=== PATIENT | female | born 1995 | race Caucasian/White ===

== ENCOUNTER 2021-06-15 19:05 | Outpatient (CLI) | payer SELFPAY ==
[~2021-06-15] VITALS: Ht 160 cm; Wt 74.1 kg
--- NOTE | 2021-06-15 19:20 | NUR ---
192- PATIENT AND FRIEND AMBULATING ONTO UNIT. PATIENT ORIENATED TO LABOR ROOM AND CHANGED INTO GOWN. PATIENT DENIES COMPLICATIONS DURING THIS . REPORTS GFM, NO LOF, NO BLEEDING AND CONTRACTIONS EVERY 5 MINUTES FOR THE LAST 2 HOURS. PATIENT FRIEND, STU, HERE TRANSLATING FOR HER. 1924- EFM AND TOCO ON AND TRACING. VITALS SIGNS TAKEN, ASSESSMENT COMPLETED WITH HELP OF TRANSLATION. DISCUSSED PLAN OF CARE AND WHAT TO EXPECT. DENIES FURTHER QUESTIONS. 1941- SVE FINGERTIP. 1949- CALLED PROVIDER SCHOOL TRAFFIC GUARD, SEE PHYSICIAN NOTIFICATION.
[2021-06-15 19:30] VITALS: BP 109/60; PULSE 75; TEMP 97.9
[2021-06-15] MEDS ORDERED: PRENATAL TABLET PO (19:48)
[2021-06-15 20:10] LABS: COLLECTION METHOD CLEAN CATCH
[2021-06-15 20:16] LABS: PH 7 (5-8); SQUAMOUS EPITHELIAL 0-2 /hpf (0-10); URINE APPEARANCE Clear (CLEAR/HAZY); URINE BACTERIA None Seen /hpf (NONE SEEN); URINE BILIRUBIN Negative (NEGATIVE); URINE BLOOD Negative (NEGATIVE); URINE COLOR Straw (YELLOW); URINE GLUCOSE Negative (NEGATIVE); URINE KETONE Negative (NEGATIVE); URINE LEUKOCYTE ESTERASE Negative (NEGATIVE); URINE NITRATE Negative (NEGATIVE); URINE PROTEIN(semi-quant) Negative (NEGATIVE); URINE RBC 0-2 /hpf (0-2); URINE UROBILINOGEN Negative (NEGATIVE); URINE WBC 0-2 /hpf (0-2)
[2021-06-15 20:25] VITALS: BP 100/59; PULSE 74
== END 2021-06-15 20:40 | disposition home or self-care (01) ==
LOC: LDRO 19:05
PROVIDERS: Obstetrics & Gynecology
DX: O62.9 Abnormality of forces of labor, unspecified (principal); Z3A.31 31 weeks gestation of pregnancy

== ENCOUNTER 2021-07-01 17:41 | Outpatient (CLI) | payer SELFPAY ==
[~2021-07-01] VITALS: Ht 160 cm; Wt 75.9 kg
[~2021-07-01 17:41] MED LIST: PRENATAL TABLET PO
--- NOTE | 2021-07-01 17:45 | NUR ---
174- Pt arrives on unit via wheelchair. Pt tearful and in pain. Pt assisted to bed. Pt is khmer speaking. Able to communicate that she fell on ice. Propulsion Engineer called. EFM and TOCO on and tracing. Assessment completed. Pt states she was using a brooom and fell. She states her legs spread apart very far, like the splits. She denies VB, LOF. She is having intermittent lower abd and lower back pain, states they feel like contractions. Pt appears uncomfortable. 1809- Dr Horton called and orders received, see physician notification. YVON Jane assumes care at this time.
[2021-07-01 18:00] VITALS: BP 105/64; PULSE 72
[2021-07-01 18:20] VITALS: PULSE 87
--- NOTE | 2021-07-01 18:20 | NUR ---
SVE closed/thick/high, no vaginal bleeding or LOF, ballotable presenting part. Pt tolerates well.
--- NOTE | 2021-07-01 18:36 | NUR ---
Tylenol 1 g po. Dried Fruit Washer continues on speaker phone. Explains procedures to pt invites questions, pt denies.
[2021-07-01 18:50] VITALS: BP 95/63; PULSE 70
[2021-07-01 19:25] VITALS: BP 98/56; PULSE 72
[2021-07-01 19:55] VITALS: BP 95/59; PULSE 75
--- NOTE | 2021-07-01 20:00 | NUR ---
Discharge instructions reviewed with pt through intrepeter. Questions invited and answered.
--- NOTE | 2021-07-01 20:25 | NUR ---
pt sings discharge instructions and points to phone number on page stating "doctoro" Off unit with family member @[phone]
== END 2021-07-01 20:30 | disposition home or self-care (01) ==
LOC: LDRO 17:41 → LDR 17:45 → LDRO 20:30
DX: O9A.213 Injury, poisoning and certain other consequences of external causes complicating pregnancy, third trimester (principal); Z3A.33 33 weeks gestation of pregnancy

== ENCOUNTER 2021-08-07 12:13 | Outpatient (CLI) | payer SELFPAY ==
[~2021-08-07] VITALS: Ht 7.6 cm; Wt 75.0 kg
[2021-08-07] MEDS ORDERED: TYLENOL 325MG325 MG PO (12:35)
[2021-08-07 13:00] VITALS: BP 97/52; PULSE 65; TEMP 98
[2021-08-07 13:10] VITALS: BP 104/58; PULSE 73
[2021-08-07 13:27] VITALS: BP 97/52; PULSE 65; TEMP 98
== END 2021-08-07 13:25 | disposition home or self-care (01) ==
LOC: LDRO 12:13
DX: O62.9 Abnormality of forces of labor, unspecified (principal); Z3A.00 Weeks of gestation of pregnancy not specified

== ENCOUNTER 2021-08-16 16:02 | Outpatient (CLI) | payer SELFPAY ==
[~2021-08-16] VITALS: Ht 160 cm; Wt 77.3 kg
[~2021-08-16 16:02] MED LIST changes: +TYLENOL 325MG325 MG PO
--- NOTE | 2021-08-16 16:15 | NUR ---
Patient ambulatory to LR6 with friend, changed into gown, FHR/TOCO placed. Patient persian speaking but friend translating. Patient here for contractions and some bloody show. Plan of care discussed. SVE-2/70/-2 and intact. Patient uncomfortable with each contraction.
[2021-08-16 16:30] VITALS: BP 123/76; PULSE 72; TEMP 98.2
--- NOTE | 2021-08-16 17:15 | NUR ---
SVE-unchanged and patient updated. Patient here for another hour for labor check. 1814: SVE-unchanged. Plan of care discussed and patient has no questions at this time. 1824: Cheryl Lagos RN given report and assumes care.
[2021-08-16 18:15] VITALS: PULSE 85
--- NOTE | 2021-08-16 19:00 | NUR ---
Reviewing plan of care with patient and friend who is able to translate. Physician orders to discharge home to rest and return with worsening signs of labor. Pt agreeable to plan, monitors removed. 1920 - This RN to room to review discharge instructions. Pt states contractions feel like they are getting worse. Back to bed for SVE. Unchanged from previous exam after discussion with previous nurse. Pt given option to stay for an additional hour since contractions feel stronger or discharge home, pt wishes to discharge home. Strict return precautions reviewed, pt and friend verbalize understanding. 1935 - Pt discharged at this time with belongings and instructions.
[2021-08-17] MEDS ORDERED: IBU600 MG PO (08:26)
== END 2021-08-16 19:35 | disposition home or self-care (01) ==
LOC: LDRO 16:02
DX: O47.1 False labor at or after 37 completed weeks of gestation (principal); Z3A.40 40 weeks gestation of pregnancy

== ENCOUNTER 2021-08-16 22:31 | Inpatient (IN) | payer OTHER ==
[~2021-08-16] VITALS: Ht 160 cm; Wt 77.3 kg
--- NOTE | 2021-08-16 22:35 | NUR ---
G5L3 at 40 weeks and 2 days arrives to unit with complaint of contractions that have been getting stronger over the last 2 hours. Pt was seen and discharged as a labor check around 1935. Pt denies LOF, reports increased vaginal bleeding. Rural Service Engineer services on phone. Pt oriented to room, call light within reach, bed in low and locked position. Clean gown on. US and toco explained and applied. Vital signs obtained. Admission assessment started. SVE 4/80/-2, membranes intact, vertex position felt.
[2021-08-16 23:00] VITALS: BP 124/79; PULSE 73; TEMP 98.1
--- NOTE | 2021-08-16 23:15 | NUR ---
18g IV started in right forearm with 1 attempt. Admission labs obtained off IV start. Lactated Ringers infusing to gravity. Consents reviewed and signed using physical therapy attendant services. All questions answered.
[2021-08-16 23:30] VITALS: BP 117/69; PULSE 81
[2021-08-16 23:30] LABS: BASO % 0.2 % (0.0-2.0); EOS # 0.2 K/mm3 (0.0-0.7); EOS % 1.2 % (0.0-4.0); GRAN # 11.7 K/mm3 (1.4-6.5); GRAN % 72.5 % (42.2-75.2); LYMPH # 2.9 K/mm3 (1.2-3.4); LYMPH % 18.2 % (20.0-51.0); MEAN CELL VOLUME 90 fl (80.0-100.0); MEAN CORPUSCULAR HEMOGLOBIN 31 pg (27-31); MEAN CORPUSCULAR HGB CONC 35 g/dl (33.0-37.0); MEAN PLATELET VOLUME 10.3 fl (7.4-10.4); MONO # 1.2 K/mm3 (0.1-0.6); MONO % 7.7 % (1.7-9.3); PLATELET COUNT 288 K/mm3 (130-400); RED BLOOD COUNT 3.87 M/mm3 (4.10-5.30); REDCELL DISTRIBUTION WIDTH-CV 12.7 % (11.5-14.5)
[2021-08-16 23:31] LABS: HEMATOCRIT 34.7 % (37.0-47.0)
[2021-08-16 23:45] VITALS: BP 119/72; PULSE 80
[2021-08-17] VITALS (21 sets, daily range): BP systolic 91–131; BP diastolic 59–87; PULSE 68–89; TEMP 97.6–98.7
--- NOTE | 2021-08-17 01:40 | NUR ---
Pt visibly much more uncomfortable with contractions, appears to be pushing. Educated patient to not push and breath through contractions.
--- NOTE | 2021-08-17 02:10 | NUR ---
Dr. Paula at bedside. Upon examination chux pad beneath patient is saturated with yellow tinged fluid. Unsure if rupture of membranes or urine. SVE by Dr. Paula . Artificial rupture of membranes with scant amount of fluid out. Van Helper services used. Will continue plan of care.
--- NOTE | 2021-08-17 02:44 | NUR ---
0235 - Pt bearing down with contractions. SVE 9/100/+2. Dr. Paula on unit and notified. 0240 - Pt positioned into footplates. Dr. Paula gowned and gloved at perineum. Lab Support Service Tech services on phone. Pt educated on pushing techniques, verbalized understanding. Initial push at this time. 0244 - Spontaneous vaginal delivery of viable girl. placed to mothers chest, care of infant assumed to Nursery RN, Nicole Rico. Cord clamped and cut by Dr. Paula. Cord blood obtained. 0246 - Spontaneous delivery of placenta. Pitocin started at 333 mu/min per protocol. Fundal massage by Dr. Paula. Perineum intact per Dr. Paula. EBL 200. 0250 - Pericare provided. New chux beneath patient. Ice pack to perineum. Fundal massage with few small clots out, fundus firm and down 2 from umbilicus. Pt positioned in bed for comfort. recovery started. See physician delivery note. 0305 - Fundal massage with clots out. Dr. Paula at nurses station and notified. Verbal orders to give Methergine, see MAR. Chux pad and peripad changed and weighed, 110 grams. 0335 - Pt continues to pass small clots with fundal checks. Dr. Paula at bedside with BSUS. No retained fragmants visualized per Dr. Paula. Will continue to monitor closely. 0350 - Clots and free flow with fundal massage. Chux and peripad changed and weighed, 191 g. 0420 - Pt states she needs to use the bathroom. Bedside commode used due to patients blood loss. Pt able to pivot to commode and void 500 mL clear urine. New gown on. Pt back to bed.
[2021-08-17 05:31] LABS: HEMOGLOBIN 12.1 g/dl (12.5-16.0)
[2021-08-17 05:35] LABS: HEMATOCRIT 35.7 % (37.0-47.0)
[2021-08-17] MEDS ORDERED: IBU600 MG PO (08:26)
--- NOTE | 2021-08-17 10:01 | NUR ---
Initial visit; (ESL) Family member enterpreted Dip Brazier offering congratulations and God's blessings for the of her daughter. Patient thanked Dip Brazier.
--- NOTE | 2021-08-17 20:20 | NUR ---
PATIENT QUESTIONED IF HER YOUNGER CHILD AGE 6 WAS ALLOWED TO VISIT INFORMED THAT THEY WERE NOT ALLOWED TO VISIT PATIENT INDICATED UNDERSTANDING
--- NOTE | 2021-08-17 21:45 | NUR ---
PATIENT SITTING ON SIDE OF BED NO COMPLAINTS AT THIS TIME
[2021-08-18 04:00] VITALS: BP 103/64; PULSE 74; TEMP 97.9
[2021-08-18 07:30] VITALS: BP 109/68; PULSE 70; TEMP 97.5
[2021-08-18 17:00] VITALS: BP 110/70; PULSE 72; TEMP 98
[2021-08-18 17:15] VITALS: BP 110/55; PULSE 72; TEMP 98
[2021-08-18 19:15] VITALS: BP 110/55; PULSE 72; TEMP 98
--- NOTE | 2021-08-18 19:15 | NUR ---
THIS RN INTO ROOM FOR ASSESSMENT. FARROWING MANAGER ON PHONE AT THIS TIME AND THROUGHOUT ASSESSMENT.
--- NOTE | 2021-08-18 21:40 | NUR ---
PT ASKED FOR FOOD AT THIS TIME SINCE SHE DID NOT EAT HER DINNER FROM [facility]. THIS RN GETS A BOXED LUNCH FROM THE UNIT NURISHMENT ROOM SINCE [facility] IS CLOSED AT THIS TIME.
[2021-08-19 10:15] VITALS: BP 102/58; PULSE 66; TEMP 98.4
--- NOTE | 2021-08-19 12:46 | NUR ---
1115 DISCHARGE INSTRUCTIONS REVIEWED USING INTERPRETOR SERVICES. QUIRINO #[id number] WAS THE INTERPRETOR. PATIENT VERBALIZED UNDERSTANDING AND ALL QUESTIONS ANSWERED. 1205ALL PERSONAL BELONGINGS GATHERED FROM PATIENT ROOM. PATIENT LEFT AMBULATORY AND IN NO APPARENT DISTRESS. PATIENT ACCOMPANIED BY A FRIEND AND THIS RN.
== END 2021-08-19 12:05 | disposition home or self-care (01) | DRG 806 ==
LOC: LDRO 22:31 → LDR 22:58 → OB 22:58
PROVIDERS: Obstetrics & Gynecology; ADMIT Obstetrics & Gynecology
PROC: 10E0XZZ Delivery of Products of Conception, External Approach (ICD-10-PCS; principal; 2021-08-16)
DX: O23.43 Unspecified infection of urinary tract in pregnancy, third trimester (principal); N39.0 Urinary tract infection, site not specified; Z37.0 Single live birth; O72.1 Other immediate postpartum hemorrhage; Z3A.40 40 weeks gestation of pregnancy; Z23 Encounter for immunization
CPT/HCPCS: J2210; J2590; J7120

== ENCOUNTER 2021-10-17 10:44 | Emergency (ER) | payer MEDICAID ==
[~2021-10-17] VITALS: Ht 167.6 cm; Wt 79.5 kg
[~2021-10-17 10:44] MED LIST changes: +IBU600 MG PO
[2021-10-17 10:56] VITALS: TEMP 99.2
[2021-10-17 11:21] LABS: BASO # 0.1 K/mm3 (0.0-0.2); BASO % 0.5 % (0.0-2.0); EOS # 0.2 K/mm3 (0.0-0.7); EOS % 1.4 % (0.0-4.0); GRAN # 6.4 K/mm3 (1.4-6.5); GRAN % 60.9 % (42.2-75.2); LYMPH # 3.2 K/mm3 (1.2-3.4); LYMPH % 30.1 % (20.0-51.0); MEAN CELL VOLUME 89 fl (80.0-100.0); MEAN CORPUSCULAR HEMOGLOBIN 30 pg (27-31); MEAN CORPUSCULAR HGB CONC 33 g/dl (33.0-37.0); MEAN PLATELET VOLUME 10.3 fl (7.4-10.4); MONO # 0.7 K/mm3 (0.1-0.6); MONO % 6.9 % (1.7-9.3); PLATELET COUNT 409 K/mm3 (130-400); RED BLOOD COUNT 4.37 M/mm3 (4.10-5.30); REDCELL DISTRIBUTION WIDTH-CV 11.6 % (11.5-14.5)
[2021-10-17 11:31] LABS: BILIRUBIN,TOTAL 2.1 mg/dL (0.2-1.2); C-REACTIVE PROTEIN 0.09 mg/dL (0.00-0.50); CALCIUM 9.4 mg/dL (8.4-10.2); CREATININE, serum 0.74 mg/dL (0.57-1.11); POTASSIUM 3.4 mmol/L (3.5-4.5); TOTAL PROTEIN 8.1 gm/dL (6.2-8.1)
[2021-10-17 11:44] LABS: COLLECTION METHOD CLEAN CATCH
[2021-10-17 11:51] LABS: PH 5 (5-8); SQUAMOUS EPITHELIAL 0-2 /hpf (0-10); URINE APPEARANCE Clear (CLEAR/HAZY); URINE BACTERIA None Seen /hpf (NONE SEEN); URINE BILIRUBIN Negative (NEGATIVE); URINE BLOOD 1+ (NEGATIVE); URINE COLOR Yellow (YELLOW); URINE GLUCOSE Negative (NEGATIVE); URINE KETONE Negative (NEGATIVE); URINE LEUKOCYTE ESTERASE Negative (NEGATIVE); URINE NITRATE Negative (NEGATIVE); URINE PROTEIN(semi-quant) Negative (NEGATIVE); URINE RBC None Seen /hpf (0-2); URINE UROBILINOGEN Negative (NEGATIVE)
[2021-10-17] MEDS ORDERED: NORCO 325 MG-51 TAB PO (15:05)
[2021-10-17] MEDS ORDERED: ZOFRAN ODT4 MG PO (15:07)
[2021-10-17 15:50] VITALS: BP 113/76; PULSE 65
== END 2021-10-17 15:50 | disposition home or self-care (01) ==
LOC: COL.ER 10:44
PROVIDERS: Physician Assistant
DX: K80.20 Calculus of gallbladder without cholecystitis without obstruction (principal); K83.9 Disease of biliary tract, unspecified; E80.7 Disorder of bilirubin metabolism, unspecified; R74.01 Elevation of levels of liver transaminase levels
CPT/HCPCS: J1885; J2270; J2405; J7030; Q9967

== ENCOUNTER 2021-10-19 12:10 | Day surgery (SDC) | payer MEDICAID ==
[2021-10-19] VITALS (8 sets, daily range): BP systolic 96–125; BP diastolic 59–82; PULSE 65–99; TEMP 98.8–99.1
[~2021-10-19] VITALS: Ht 167.6 cm; Wt 69.4 kg
[~2021-10-19 12:10] MED LIST changes: +NORCO 325 MG-51 TAB PO; +ZOFRAN ODT4 MG PO
--- NOTE | 2021-10-19 14:12 | NUR ---
Language service contacted about consent. Pt is still unable to verbalized information about procedure. DR is to talk to pt before signature can be obtained.
[2021-10-19 14:31] LABS: ALBUMIN 4.7 gm/dL (3.5-5.0); CALCIUM 9.3 mg/dL (8.4-10.2); CREATININE, serum 0.73 mg/dL (0.57-1.11); POTASSIUM 4.2 mmol/L (3.5-4.5)
--- NOTE | 2021-10-19 15:10 | NUR ---
Language interpertation service was re-connected to review consent with the pt, , MACHINIST SET UP and . DR explained the procedure while the RN was connecting, and the translated. The pt then used the interpertation service to verbalized understanding the procedure, and signed the consent witnessed by Shara SANZ and Gianna SANZ. Pt then ambulated to the bathroom prior to being taken back to the OR.
[2021-10-19] MEDS ORDERED: NORCO 325 MG-51 TAB PO (16:30)
--- NOTE | 2021-10-19 17:30 | NUR ---
PATIENT ADMITED INTO ROOM 322 POST OP. ORIENTED BUT DROWSY. YORUBA SPEAKING ONLY. AT BEDSIDE TO TRANSLATE. VSS. C/O MOD PAIN & NAUSEA AND WAS GIVEN PAIN AND ANTINAUSEA MEDS BEFORE COMING TO FLOOR. ABD LAB SITES X4 ARE WELL APPROXIMATED. ABD IS ROUND, SOFT AND WITH POSITIVE BOWL SOUNDS. ICE CHIPS AT BEDSIDE. HEAD TO TOE ASSESSMENT COMPLETE. ORIENTED TO ROOM. CALL LIGHT IN REACH.
--- NOTE | 2021-10-19 20:31 | NUR ---
Received report from day shift. Patient alert and oriented x4. Patient reports pain in shoulder, patient instructed to walk to alleviate pain from gas. Patient tolerated fluids well, advanced to general diet. Tolerated food well. Urinated with no issues. Patient given discharge instructions, medication information and follow up appointment. Patient denied any questions or concerns. IV dc'd. Patient escorted out via wheelchair.
== END 2021-10-19 20:10 | disposition home or self-care (01) ==
LOC: SDCO 12:10 → SURG 17:30 → SDCO 20:10
PROVIDERS: Surgery
DX: K80.10 Calculus of gallbladder with chronic cholecystitis without obstruction (principal)
CPT/HCPCS: OP; J0690; J1100; J1170; J1885; J2405; J2550; J2704; J3010; J7120